=== PATIENT | male | born 1970 | race Two or more races ===

== ENCOUNTER → 2016-10-11 | Outpatient (CLI) | payer OTHER ==
[~2016-10-11] MED LIST: IOPAMIDOL (ISOVUE-300) 100 ML BTL IV ONE
== END ==
LOC: FIMAGING 12:04
PROVIDERS: ATTEND Internal Medicine
DX: Z13.29 Encounter for screening for other suspected endocrine disorder (principal); N20.0 Calculus of kidney; I31.8 Other specified diseases of pericardium
CPT/HCPCS: Q9967

== ENCOUNTER → 2017-08-08 | Outpatient (CLI) | payer OTHER | LOC: FIMAGING 10:30 | PROVIDERS: ATTEND Physician Assistant | DX: K76.0 Fatty (change of) liver, not elsewhere classified (principal) ==

== ENCOUNTER → 2018-02-07 | Outpatient (CLI) | payer OTHER | LOC: FIMAGING 07:10 | PROVIDERS: ATTEND Internal Medicine Gastroenterology | DX: R16.0 Hepatomegaly, not elsewhere classified (principal); K76.0 Fatty (change of) liver, not elsewhere classified; R10.11 Right upper quadrant pain ==

== ENCOUNTER → 2018-03-12 | Outpatient (CLI) | payer OTHER ==
[~2018-03-12] MED LIST changes: +GADOBUTROL 10 ML VIAL IVP ONE; -IOPAMIDOL (ISOVUE-300) 100 ML BTL IV ONE
== END ==
LOC: FIMAGING 10:28
PROVIDERS: ATTEND Psychiatry & Neurology Neurology
DX: H53.8 Other visual disturbances (principal); R20.2 Paresthesia of skin
CPT/HCPCS: A9585

== ENCOUNTER 2018-07-29 20:53 | Emergency (ER) | payer OTHER ==
[2018-07-29 21:01] VITALS: BP 132/93
--- NOTE | 2018-07-29 21:37 | EDPHY ---
H & P Stated Complaint: neck abcess Time Seen by Provider: 07/29/18 21:19 HPI/ROS: CHIEF COMPLAINT: Abscess on neck HISTORY OF PRESENT ILLNESS: The patient presents to the ED with a subcutaneous abscess that has formed on his neck increasing in size over the past several days. The patient denies prior history of abscesses. He denies significant fever. He has localized pain, erythema and tenderness. He denies any dysphagia , respiratory symptoms or other skin lesions that he has noticed. REVIEW OF SYSTEMS: A comprehensive 10 point review of systems is otherwise negative aside from elements mentioned in the history of present illness. Source: Patient - Personal History Tetanus Vaccine Date: within 10 year - Medical/Surgical History Hx Asthma: No Hx Chronic Respiratory Disease: No Hx Diabetes: No Hx Cardiac Disease: No Hx Renal Disease: No Hx Cirrhosis: No Hx Alcoholism: No Hx HIV/AIDS: No Hx Splenectomy or Spleen Trauma: No Other PMH: medical- erosive esophagitits, acid reflux,. surgical- tonsilectomy - Social History Smoking Status: Never smoked - Physical Exam Exam: General Appearance: Alert, no distress Eyes: Pupils equal and round no pallor or injection ENT, Mouth: Mucous membranes moist Respiratory: There are no retractions, lungs are clear to auscultation Cardiovascular: Regular rate and rhythm Gastrointestinal: Abdomen is soft and nontender, no masses, bowel sounds normal Neurological: A&O, normal motor function, normal sensory exam, normal cranial nerves Skin: Firm tender erythematous 1 cm nodule noted to the left mid cervical region Musculoskeletal: Neck is supple nontender Extremities: symmetrical, full range of motion Constitutional: Initial Vital Signs Temperature (C) 36.5 C 07/29/18 20:59 Heart Rate 110 H 07/29/18 20:59 Respiratory Rate 20 07/29/18 20:59 Blood Pressure 132/93 H 07/29/18 20:59 O2 Sat (%) 94 07/29/18 20:59 O2 Delivery Mode Room Air Allergies/Adverse Reactions: aspirin Allergy (Verified 07/29/18 20:58) Pt reports throat and tongue swelling ibuprofen Allergy (Verified 07/29/18 20:58) Pt reports throat and tongue swelling ketoconazole Allergy (Verified 07/29/18 20:58) Pt reports rash naproxen [From Naprosyn] Allergy (Verified 07/29/18 20:58) Pt reports swelling face and throat Penicillins Allergy (Verified 07/29/18 20:58) Pt reports throat and tongue swelling vancomycin Allergy (Verified 07/29/18 20:58) Pt reports rash Home Medications: Medication Instructions Recorded DEXILANT 03/06/16 Hyoscyamine Sulfate 01/21/18 Levothyroxine Sodium 01/21/18 Sulfamethox/Tmp 800/160 mg 1 tab PO BID #14 tab 07/29/18 [Bactrim DS] Medical Decision Making Procedures: Procedure: Ultrasound evaluation of the skin. Indications: The patient has skin erythema and induration and soft tissue abscess needs to be ruled out. Procedure: Using the linear probe the area in question was imaged and there was evidence of abscess material throughout this region. Findings: Cellulitis without any evidence of soft tissue abscess was demonstrated on bedside ultrasound. This procedure was performed by myself. Procedure: Abscess drainage. The patient's abscess was located on the neck. I obtained verbal consent from the patient to drain the abscess who was informed about the possibility of bleeding and pain. The abscess was incised with a scalpel and a moderate amount of purulent drainage was expressed. I irrigated the wound and placed some packing. The patient tolerated the procedure well. The procedure was performed by myself. ED Course/Re-evaluation: Patient presents to the ED with a subcutaneous nodule noted on his neck surrounding erythema and tenderness. Bedside ultrasound did confirm the presence of a subcutaneous abscess approximately 1.5 cm in size. The patient received local anesthesia and an incision and drainage performed by myself without complication. The abscess cavity was copiously irrigated. Given the small size of the cavity and small incision no packing was used. The patient will be discharged home with antibiotics. He is advised to return to the ED for any increasing pain, redness, swelling, fever, difficulty swallowing or other concerns. Departure - Departure Disposition: Home, Routine, Self-Care Clinical Impression: Subcutaneous abscess Qualifiers: Site of cutaneous abscess: neck Qualified Code(s): L02.11 - Cutaneous abscess of neck Condition: Good Instructions: Abscess (ED) Additional Instructions: 1. Bathe as usual. 2. Take antibiotics as directed for next 7 days. 3. Return to the ED for increasing pain, redness, swelling or other concerns. Referrals: [facility] [Other] - As per Instructions
== END 2018-07-29 21:49 | disposition home or self-care (01) ==
PROC: 0H94XZZ Drainage of Neck Skin, External Approach (ICD-10-PCS; principal; 2018-07-29)
DX: L02.11 Cutaneous abscess of neck (principal)